=== PATIENT | female | born 1955 | race Caucasian/White ===

== ENCOUNTER → 2022-04-06 10:58 | Outpatient (CLI) | payer MEDICARE, OTHER, SELFPAY | PROVIDERS: PCP Family Medicine; Referring Provider Family Medicine; Visit Provider Family Medicine | DX: Z78.0 Asymptomatic menopausal state (principal); Z13.820 Encounter for screening for osteoporosis; M85.851 Other specified disorders of bone density and structure, right thigh | CPT/HCPCS: 77080 ==

== ENCOUNTER → 2022-05-13 11:55 | Outpatient (CLI) | payer MEDICARE, OTHER, SELFPAY ==
[2022-05-13 13:28] LABS: COVID19 -Nasal RAPID Negative (Negative)
== END ==
PROVIDERS: PCP Family Medicine; Visit Provider Surgery
DX: Z20.822 Contact with and (suspected) exposure to COVID-19 (principal); Z01.812 Encounter for preprocedural laboratory examination
CPT/HCPCS: 87635; C9803

== ENCOUNTER 2022-05-15 13:08 | Day surgery (SDC) | payer MEDICARE, OTHER, SELFPAY ==
[2022-05-15 13:23] VITALS: BP 151/89; PULSE 81; RESP 16; TEMP 36.6; O2SAT 100; BMI 28.1
[2022-05-15] MEDS: LACTATED RINGERS 1,000 ML 42 ML IV (14:00)
--- NOTE | 2022-05-15 14:37 | PM.HP.1 ---
History of Present Illness History of Present Illness Chief complaint: [facility] [place] Narrative: Ms. Mcghee presents for a screening colonoscopy today. Her last colonoscopy was 12 [address] Tanner. I did review the report in the medical record. She believes that her last colonoscopy was clean and she was recommended to have a 10 year follow-up. The report strangely does note the presence of polyps in the transverse and sigmoid colon but no biopsies were taken and the recommendation is for a 10 year follow-up. At this time she has no alarm symptoms no bleeding no diarrhea constipation. She is no family history of colon cancer. The only colon problems she is had is a hemorrhoid surgery in 1998 and has not had any issues with her hemorrhoids since. Patient History Family & Social History Social History: household members spouse Tobacco & Substance use: Smoking Status Never smoker alcohol intake current alcohol intake frequency 0-2 drinks per day Substance Use Type does not use Meds Home Medications and Allergies Home Medications Medication Instructions Recorded Confirmed Type sodium,potassium,mag sulfates 17.5 See Rx Instructions PO .COMPLEX 04/16/22 Rx gram-3.13 gram-1.6 gram oral soln #354 mL (Suprep Bowel Prep Kit) Allergies Allergy/AdvReac Type Severity Reaction Status Date / Time erythromycin base AdvReac Intermediate Vomiting Verified 05/15/22 13:47 oxycodone [From Percocet] AdvReac Intermediate Vomiting Verified 05/15/22 13:47 Exam Vital Signs (past 8 hours): - 05/15/22 13:23 Temperature 97.8 F Pulse Rate 81 Respiratory Rate 16 Blood Pressure 151/89 H Pulse Oximetry 100 Oxygen Delivery Method Room Air Oxygen Delivery Method Room Air Const General: cooperative, healthy appearing and comfortable Resp Effort & Inspection: normal respiratory effort and able to speak in complete sentences Cardio Pulses: radial pulses present GI Palpation: soft and No tender Extrem General: normal to inspection Assessment & Plan Assessment and plan (1) Screening for colon cancer: Status: Acute Assessment & Plan narrative: I discussed the risks benefits and alternatives to a screening colonoscopy with Ms. Mcghee including but not limited to perforation of the colon. Understands and would like to proceed. Time Spent With Patient Critical Care time: I spent a total of [] minutes of critical care time on this patient's care today; this time is exclusive of procedural time.
[2022-05-15 15:28] VITALS: BP 139/81; PULSE 67; RESP 16; TEMP 36.6; O2SAT 98
[2022-05-15 15:32] VITALS: BP 151/88; PULSE 71; RESP 14; O2SAT 100
--- NOTE | 2022-05-15 15:35 | PM.OP.COLON ---
Procedure & Clinicians Study performed: Colonoscopy Same procedure as scheduled: Yes Indications: Screening Surgeon: Alyssia Mckeon Procedure Notes Procedure in detail: Patient was taken to the endoscopy suite and placed in the left lateral decubitus position a time-out was performed and anesthesia was induced with the help of an anesthetic provider. The digital rectal exam was performed there were some anal skin tags but no masses or other abnormalities on the digital rectal exam. The colonoscope was introduced into the anus. Was advanced through the colon and the cecum was intubated a photograph was taken of the appendiceal orifice. The prep was decent and mostly good there was some staining of the wall of the cecum which was easily irrigated. No polyps were seen in the cecum. The scope was then withdrawn for period of 16 minutes. No further polyps were seen on the mucosa. There were some scattered diverticula throughout the descending and sigmoid colon some photographs were taken of these. A retroflexion was performed and no large hemorrhoid piles were appreciated. Findings: divertiulosis Specimen(s): none sent Complications: none
[2022-05-15 15:37] VITALS: BP 148/83; PULSE 67; RESP 16; O2SAT 99
[2022-05-15 15:58] VITALS: BP 132/99; PULSE 75; RESP 16; TEMP 36.6; O2SAT 99
== END 2022-05-15 16:05 | disposition home or self-care (01) ==
PROVIDERS: PCP Family Medicine; Referring Provider Surgery; Visit Provider Surgery
PROC: 0DJD8ZZ Inspection of Lower Intestinal Tract, Via Natural or Artificial Opening Endoscopic (ICD-10-PCS; CPT 45378; principal; 2022-05-15 14:15)
DX: Z12.11 Encounter for screening for malignant neoplasm of colon (principal); K57.30 Diverticulosis of large intestine without perforation or abscess without bleeding
CPT/HCPCS: G0121; J2704

== ENCOUNTER → 2025-04-06 07:21 | Outpatient (CLI) | payer MEDICARE, OTHER, SELFPAY ==
[2025-04-06 07:56] LABS: Add Manual Diff / Slide Review NO; Hematocrit 41.0 % (36-46); Hemoglobin 13.9 g/dL (12.0-16.0); Lymphocytes Absolute Auto 1500 /uL (1100-4500); Mean Corpuscular HGB Conc 33.9 % (30-36); Mean Corpuscular Hemoglobin 29.8 PG (26-34); Mean Corpuscular Volume 87.8 fL (80-100); Platelet Count 305 X10^3/uL (150-400)
[2025-04-06 09:37] LABS: Alanine Aminotransferase 26 IU/L (<35); Albumin 4.5 g/dL (3.5-5.0); Albumin Globulin Ratio 1.6 (1.0-2.8); Alkaline Phosphatase 90 U/L (38-126); Blood Urea Nitrogen 15 mg/dL (7-17); Calcium 9.8 mg/dL (8.4-10.2); Carbon Dioxide 29 mmol/L (22-32); Chloride 103 mmol/L (98-107); Cholesterol 241 mg/dL (140-199); Estimated Glomerular Filt Rate > 60 mL/min (>60); Globulin 2.9 g/dL (1.7-4.1); Glucose 89 mg/dL (70-99); HDL Cholesterol 102 mg/dL (40-60); HEMOLYSIS < 15 (0-50); Potassium 4.4 mmol/L (3.4-5.1); Sodium 138 mmol/L (137-145); Total Protein 7.4 g/dL (6.3-8.2); Triglycerides 72 mg/dL (35-150)
[2025-04-06 10:05] LABS: Thyroid Stimulating Hormone 2.21 uIU/mL (0.47-4.68)
== END ==
PROVIDERS: PCP Student in an Organized Health Care Education/Training Program; Referring Provider Student in an Organized Health Care Education/Training Program; Visit Provider Student in an Organized Health Care Education/Training Program
DX: Z00.00 Encounter for general adult medical examination without abnormal findings (principal); M54.16 Radiculopathy, lumbar region; Z68.29 Body mass index [BMI] 29.0-29.9, adult
CPT/HCPCS: 36415; 72100; 80053; 80061; 84443; 85025; 99213

== ENCOUNTER → 2025-04-17 11:03 | Outpatient (CLI) | payer MEDICARE, OTHER, SELFPAY ==
--- NOTE | 2025-04-17 11:05 | DI.MRI.S_ITS ---
PROCEDURE: MR LUMBAR SPINE WO CON INDICATIONS: RT KNEE PAIN TECHNIQUE: Noncontrast sagittal T1 spin echo and T2 fast echo, sagittal STIR, and T2 fast spin echo through the lumbar spine. In cases with scoliosis, additional coronal T2 fast spin echo may be performed. COMPARISON: None. FINDINGS: Image quality: Excellent Mild dextroscoliosis of the lumbar spine, centered at L2-3. Grade 1 anterolisthesis of L3-4 and L4 on L5. Vertebral body height of the lumbar spine are well maintained. Scattered vertebral hemangiomas. Marrow edema of the right pedicle of L4 and L5, which may be degenerative versus stress changes. Multilevel disc bulge and disc desiccation. Conus terminates at the level of T12-L1, and is unremarkable. Right neural foraminal stenosis: None. Left neural foraminal stenosis: Mild at L3-4. Axial images: T12-L1: Mild disc bulge. No central canal stenosis. L1-2: Mild disc bulge. No central canal stenosis. L2-3: Mild bilateral facet arthropathy. No central canal stenosis. L3-4: Mild bilateral facet arthropathy. Posterior disc uncovering. No central canal stenosis. L4-5: Moderate bilateral facet arthropathy. Posterior disc uncovering. No central canal stenosis. L5-S1: Mild disc bulge. Mild bilateral facet arthropathy, right greater than left. No central canal stenosis. Visualized sacrum is intact. IMPRESSION: 1. Multilevel degenerative changes, with mild left neural foraminal stenosis at L3-4. No central canal stenosis in the lumbar spine. 2. Marrow edema of the right pedicle of L4 and L5, which may be degenerative versus stress changes. Dictated by: Ave Cole M.D. on 04/17/2025 at 12:07 Approved by: Ave Cole M.D. on 04/17/2025 at 12:19
== END ==
PROVIDERS: PCP Student in an Organized Health Care Education/Training Program; Referring Provider Physician Assistant Surgical; Visit Provider Physician Assistant Surgical
DX: M51.16 Intervertebral disc disorders with radiculopathy, lumbar region (principal); M51.17 Intervertebral disc disorders with radiculopathy, lumbosacral region; M47.26 Other spondylosis with radiculopathy, lumbar region; M47.27 Other spondylosis with radiculopathy, lumbosacral region; M48.061 Spinal stenosis, lumbar region without neurogenic claudication; M25.50 Pain in unspecified joint; R60.0 Localized edema
CPT/HCPCS: 36415; 72148; 86140; 86200; 86430